=== PATIENT | male | born 1985 | race Caucasian/White ===

== ENCOUNTER 2017-03-01 11:19 | Emergency (ER) | payer OTHER ==
[~2017-03-01 11:19] MED LIST: ALBUTEROL0.83 MG/ML IH; ALBUTEROL17 GM; ALBUTEROL17 GM INH; AMOXICILLIN PO; AMOXIL500 MG PO; ANTIVERT PO; ASPIR-TRIN325 MG PO; BACTRIM DS TABL1 TA1 PO; BENADRYL PO; BENTYL10 MG PO; CARAFATE PO; CORTISPORIN OTIC; DICLOFENAC PO; ELIMITE60 GM TOP; FAMOTIDINE PO; FIORINAL 50-321 EACH PO; FLEXERIL10 MG PO; HYDROCODON-ACE1 EAC5 PO; HYDROCODONE-APA1 T30 PO; KEFLEX PO; KETOPROFEN PO; LODINE PO; LOPRESSOR; LOPRESSOR PO; LORTAB 10-5001 EACH PO; LORTAB 5/500 TA1 TA1 PO; LORTAB 7.5-5001 TAB PO; LORTAB 7.51 TAB 7.5/ PO; METOPROLOL SUCC25 MG PO; METOPROLOL TAR25 MG PO; METOPROLOL TART25 GM PO; MOBIC PO; MUCINEX DM1 TAB.SR . PO; NAPROXEN PO; NEBULIZER MACHINE; NEXIUM PO; NO MEDICATIONS; PEN-VEE K PO; PHENERGAN PO; PHENERGAN PR; PHENERGAN W/CO120 ML PO; PHENERGAN25 MG PO; PRAVACHOL PO; PREDNISONE PO; PREDNISONE10 MG/DOSE PO; PRILOSEC PO; PRILOSEC20 MG PO; PROAIR HFA8.5 GM IH; PROTONIX PO; PROVENTIL17 GM PO; REGLAN PO; STERAPRED DS PO; TYLENOL #3 PO; ULTRAM PO; VIBRAMYCIN100 M1 PO; VICODIN 5/1 TAB 5/50 PO; VICODIN PO; VISTARIL PO; VOLTAREN75 MG PO; ZANTAC PO; ZANTAC150 MG; ZITHROMAX PO
== END 2017-03-01 12:45 | disposition expired ==
LOC: CED 11:19
DX: I46.9 Cardiac arrest, cause unspecified (principal); Z88.5 Allergy status to narcotic agent; Z88.8 Allergy status to other drugs, medicaments and biological substances
CPT/HCPCS: 82947; 92950; 99285